=== PATIENT | female | born 1985 | race Hispanic/Latino ===

== ENCOUNTER 2017-09-20 21:00 | Emergency (ER) | payer BC ==
[2017-09-20 22:56] LABS: Absolute Lymphocytes (CBC) 1.1 K/uL (0.7-4.9); Absolute Monocytes 0.5 K/uL (0.1-1.3); Absolute Neutrophil 1.3 K/uL (1.8-8.0); Basophils % 0.8 % (0-1.3); Eosinophils % 13.2 % (0-4.4); Hematocrit 38.6 % (36.0-45.0); Lymphocytes % 32.2 % (15.3-44.8); MCH 28.6 pg (27.0-35.0); MCV 86.7 fL (80-100); MPV 9.9 fL (7.6-11.3); Monocytes % 15.3 % (3.3-12.3); RBC Red Blood Cell Count 4.45 M/uL (3.86-4.86)
[2017-09-20 23:06] LABS: Bicarbonate 28 mEq/L (21-31); Glucose Level 88 mg/dL (65-120); Potassium 3.7 mEq/L (3.6-5.0); Protime INR 1.07; Sodium Level 138 mEq/L (135-145)
[2017-09-20 23:07] LABS: BUN Blood Urea Nitrogen 18 mg/dL (6-20); Glomerular Filtration Rate > 90 mL/min (=/>90)
[2017-09-20 23:31] LABS: Blood Morphology Comment NOT SEEN (NOT SEEN); Platelet Estimate ADEQ
--- NOTE | 2017-09-21 01:49 | EDPHYS ---
Physician Documentation [facility] Name: Aline Hightower Age: 32 yrs Sex: Female : 1985 Arrival Date: 09/20/2017 Time: 21:00 Bed 7 Private MD: ED Physician Júnior Haskins HPI: 09/21 01:41 This 32 yrs old Female presents to ER via Ambulatory with complaints of Rash, gs Chest Pain, Shortness Of Breath. 01:41 The patient's rash thought to be caused by an unknown cause. The rash is located on the gs body diffusely. The rash can be described as macular, papular. Onset: The symptoms/episode began/occurred yesterday. Associated signs and symptoms: Pertinent positives: burning sensation, Pertinent negatives:. Severity of symptoms: At their worst the symptoms were moderate in the emergency department the symptoms are unchanged. The patient has not experienced similar symptoms in the past. Historical: - Allergies: 09/20 21:33 No Known Allergies; ea - Home Meds: 21:33 None [Active]; ea - PMHx: 21:33 None; ea - PSHx: 21:33 kidney stone removal; ea - Immunization history:: Adult Immunizations up to date. - Social history:: Smoking status: Patient/guardian denies using tobacco. ROS: 09/21 01:41 Respiratory: Positive for shortness of breath, says feels nervous, chest pain with gs movement. All other systems are negative. Exam: 01:41 Head/Face: Normocephalic, atraumatic. Eyes: Pupils equal round and reactive to light, gs extra-ocular motions intact. Lids and lashes normal. Conjunctiva and sclera are non-icteric and not injected. Cornea within normal limits. Periorbital areas with no swelling, redness, or edema. ENT: Nares patent. No nasal discharge, no septal abnormalities noted. Tympanic membranes are normal and external auditory canals are clear. Oropharynx with no redness, swelling, or masses, exudates, or evidence of obstruction, uvula midline. Mucous membranes moist. Neck: Trachea midline, no thyromegaly or masses palpated, and no cervical lymphadenopathy. Supple, full range of motion without nuchal rigidity, or vertebral point tenderness. No Meningismus. Chest/axilla: Normal chest wall appearance and motion. Nontender with no deformity. No lesions are appreciated. Cardiovascular: Regular rate and rhythm with a normal S1 and S2. No gallops, murmurs, or rubs. Normal PMI, no JVD. No pulse deficits. Respiratory: Lungs have equal breath sounds bilaterally, clear to auscultation and percussion. No rales, rhonchi or wheezes noted. No increased work of breathing, no retractions or nasal flaring. Abdomen/GI: Soft, non-tender, with normal bowel sounds. No distension or tympany. No guarding or rebound. No evidence of tenderness throughout. Back: No spinal tenderness. No costovertebral tenderness. Full range of motion. MS/ Extremity: Pulses equal, no cyanosis. Neurovascular intact. Full, normal range of motion. Neuro: Awake and alert, GCS 15, oriented to person, place, time, and situation. Cranial nerves II-XII grossly intact. Motor strength 5/5 in all extremities. Sensory grossly intact. Cerebellar exam normal. Normal gait. 01:41 Constitutional: The patient appears alert, awake. 01:41 Skin: rash a moderate rash is noted, rash can be described as macular, papular, and is diffusely located. 01:47 ECG was reviewed by the Attending Physician. Vital Signs: 09/20 21:46 BP 114 / 76; Pulse 65; Resp 18; Temp 98.1(O); Pulse Ox 100% on R/A; Weight 51.71 kg; tl2 Height 5 ft. 4 in. (162.56 cm); Pain 4/10; 22:42 BP 107 / 78; Pulse 61; Resp 18; Pulse Ox 100% on R/A; tl2 09/21 01:47 Pulse 58; Resp 18; Pulse Ox 100% on R/A; tl2 09/20 21:46 Body Mass Index 19.57 (51.71 kg, 162.56 cm) tl2 MDM: 09/20 22:25 Patient medically screened. 09/21 01:41 Differential diagnosis: allergic reaction, viral rash, contact dermatitis. Data reviewed: vital signs, nurses notes. 09/20 22:35 Order name: CBC with Diff 09/20 22:35 Order name: Basic Metabolic Panel 09/20 22:35 Order name: Protime (+inr) 09/20 22:57 Order name: CBC with Automated Diff; Complete Time: 00:33 EDMS 09/20 23:07 Order name: Basic Metabolic Panel; Complete Time: 00:33 EDMS 09/20 23:07 Order name: Protime (+INR); Complete Time: 00:33 EDMS 09/20 22:35 Order name: XRAY Chest Pa And Lat (2 Views) 09/20 22:35 Order name: EKG - Nurse/Tech; Complete Time: 22:36 09/20 23:31 Order name: Manual Differential; Complete Time: 00:33 EDMS EC:47 Rate is 65 beats/min. Rhythm is regular. NE interval is normal. QRS interval is normal. gs T waves are Normal. No ST changes noted. Clinical impression: Normal ECG. Interpreted by me. Administered Medications: No medications were administered Disposition: 09/21/17 01:48 Discharged to Home. Impression: Dermatitis, unspecified, Chest pain, unspecified. - Condition is Stable. - Discharge Instructions: Rash, [id number]. - Prescriptions for Prednisone 20 mg Oral Tablet - take 1 tablet by ORAL route once daily for 5 days; 5 tablet. Zyrtec 10 mg Oral Tablet - take 1 tablet by ORAL route once daily As needed; 20 tablet. - Medication Reconciliation Form, Thank You Letter, Antibiotic Education, Prescription Opioid Use form. - Follow up: Private Physician; When: 1 - 2 days; Reason: Re-evaluation by your physician. Signatures: Dispatcher [employer] [facility] Ruthie Jaimes RN RN tl2 Anaya Rodriguez RN RN ea Starr, Gregory, MD MD
--- NOTE | 2017-09-21 01:49 | ER ---
Nurse's Notes [facility] Name: Aline Hightower Age: 32 yrs Sex: Female : 1985 Arrival Date: 09/20/2017 Time: 21:00 Bed 7 Private MD: Diagnosis: Dermatitis, unspecified;Chest pain, unspecified Presentation: 09/20 21:32 Presenting complaint: Patient states: Rash that started 3 days ago, pt reports today it ea is worse, states she is feeling SOB and is having chest pain. Transition of care: patient was not received from another setting of care. Onset of symptoms was September 20, 2017. Care prior to arrival: None. 21:32 Method Of Arrival: Ambulatory ea 21:32 Acuity: ROSALINE 2 ea Historical: - Allergies: 21:33 No Known Allergies; ea - Home Meds: 21:33 None [Active]; ea - PMHx: 21:33 None; ea - PSHx: 21:33 kidney stone removal; ea - Immunization history:: Adult Immunizations up to date. - Social history:: Smoking status: Patient/guardian denies using tobacco. Screenin:47 Abuse screen: Denies threats or abuse. Nutritional screening: No deficits noted. tl2 Tuberculosis screening: No symptoms or risk factors identified. Fall Risk None identified. Assessment: 21:45 General: Appears in no apparent distress. comfortable, Behavior is calm, cooperative, tl2 appropriate for age. Pain: Complains of pain in chest Pain does not radiate. Pain began 1 day ago. Neuro: Level of Consciousness is awake, alert, obeys commands, Oriented to person, place, time, situation. Cardiovascular: Reports chest pain, Heart tones S1 S2 present Rhythm is sinus rhythm Chest pain quality is tingling. Respiratory: Airway is patent Respiratory effort is even, unlabored, Respiratory pattern is regular, symmetrical. GI: No signs and/or symptoms were reported involving the gastrointestinal system. : No signs and/or symptoms were reported regarding the genitourinary system. Derm: Rash noted that is macular, itchy, red. 22:45 Reassessment: Patient appears in no apparent distress at this time. Patient and/or tl2 family updated on plan of care and expected duration. Pain level reassessed. Patient is alert, oriented x 3, equal unlabored respirations, skin warm/dry/pink. 09/21 00:34 Reassessment: Patient appears in no apparent distress at this time. Patient and/or tl2 family updated on plan of care and expected duration. Pain level reassessed. Patient is alert, oriented x 3, equal unlabored respirations, skin warm/dry/pink. awaiting further orders. 01:47 Reassessment: Patient appears in no apparent distress at this time. Patient and/or tl2 family updated on plan of care and expected duration. Pain level reassessed. Patient is alert, oriented x 3, equal unlabored respirations, skin warm/dry/pink. Pt resting, awaiting further orders or dispo. 02:11 Reassessment: Patient appears in no apparent distress at this time. Patient and/or tl2 family updated on plan of care and expected duration. Pain level reassessed. Patient is alert, oriented x 3, equal unlabored respirations, skin warm/dry/pink. Pt verbalized understanding of discharge instructions, need for follow up and prescription usage Patient states feeling better. Vital Signs: 09/20 21:46 BP 114 / 76; Pulse 65; Resp 18; Temp 98.1(O); Pulse Ox 100% on R/A; Weight 51.71 kg; tl2 Height 5 ft. 4 in. (162.56 cm); Pain 4/10; 22:42 BP 107 / 78; Pulse 61; Resp 18; Pulse Ox 100% on R/A; tl2 09/21 01:47 Pulse 58; Resp 18; Pulse Ox 100% on R/A; tl2 09/20 21:46 Body Mass Index 19.57 (51.71 kg, 162.56 cm) tl2 ED Course: 09/20 21:00 Patient arrived in ED. ds1 21:33 Triage completed. ea 21:56 Júnior Haskins MD is Attending Physician. gs 22:10 Ruthie Jaimes RN is Primary Nurse. tl2 22:42 Inserted saline lock: 20 gauge in right antecubital area, using aseptic technique. tl2 Blood collected. Patient maintains SpO2 saturation greater than 95% on room air. 23:00 Patient has correct armband on for positive identification. Placed in gown. Bed in low tl2 position. Call light in reach. Side rails up X 1. Adult w/ patient. 23:00 Arm band placed on right wrist. tl2 23:08 Patient moved to radiology via wheelchair. kw 23:08 X-ray completed. Patient tolerated procedure well. kw 23:08 Patient moved back from radiology. kw 09/21 02:11 No provider procedures requiring assistance completed. IV discontinued, intact, tl2 bleeding controlled, No redness/swelling at site. Pressure dressing applied. Administered Medications: No medications were administered Outcome: 01:48 Discharge ordered by . gs 02:11 Discharged to home ambulatory, with family. tl2 02:11 Condition: stable 02:11 Discharge instructions given to patient, Instructed on discharge instructions, follow up and referral plans. medication usage, Demonstrated understanding of instructions, follow-up care, medications, Prescriptions given X 2. 02:13 Patient left the ED. tl2 Signatures: Dennise Erazo ds1 Kalyani Santana Taylor, RN RN tl2 Anaya Rodriguez RN RN ea Starr, Gregory, MD MD gs Corrections: (The following items were deleted from the chart) 09/20 22:37 21:46 BP 114 / 76; Pulse 65bpm; Resp 18bpm; Pulse Ox 100% RA; 51.71 kg; Height 5 ft. 4 tl2 in.; BMI: 19.5; Pain 4/10; tl2 09/21 02:13 02:11 Patient has correct armband on for positive identification. Placed in gown. Bed tl2 in low position. Call light in reach. Side rails up X 1. Adult w/ patient. tl2
--- NOTE | 2017-09-21 07:57 | EKG ---
Test Date: 2017-09-20 Test Time: 21:24:47 Residence Leasing Agent: [facility] MEASUREMENT RESULTS: Intervals: Rate: 65 NM: 146 QRSD: 80 QT: 394 QTc: 409 [place]: P: 79 NM: 146 QRS: 58 T: 32 INTERPRETIVE STATEMENTS: Normal sinus rhythm Normal ECG No previous ECG available for comparison Electronically Signed On 09-21-17 07:56:37 CDT by Andrew Pace
--- NOTE | 2017-09-21 09:00 | RAD REPORT ---
EXAM DESCRIPTION: RAD - Chest Pa And Lat (2 Views) - 09/20/2017 11:12 pm CLINICAL HISTORY: Chest pain, shortness of breath COMPARISON: None. TECHNIQUE: PA and lateral views of the chest were obtained. FINDINGS: The lungs are clear. Heart size is normal and central vasculature is within normal limit s. No pleural effusion or pneumothorax seen. No acute bone process seen. There is mild scoliosis of the upper thoracic spine. No fused or anomalous vertebrae. No aortic abnormality. IMPRESSION: No acute cardiopulmonary process.
== END 2017-09-21 02:13 | disposition home or self-care (01) ==
LOC: ER 21:00
DX: R07.9 Chest pain, unspecified (principal); L30.9 Dermatitis, unspecified
CPT/HCPCS: 36415; 71046; 80048; 85025; 85610; 93005; 99285